=== PATIENT | male | born 1990 | race Caucasian/White ===

== ENCOUNTER 2017-04-16 10:11 | Emergency (ER) | payer MEDICAID ==
[~2017-04-16] VITALS: Ht 165.1 cm; Wt 100.3 kg
[2017-04-16 10:13] VITALS: Ht 165.1 cm; Wt 100.3 kg
[2017-04-16] MEDS ORDERED: ONDANSETRON (ODT) 4 MG TAB ODT STA (11:30)
[2017-04-16] MEDS ORDERED: HYDROCODONE/APAP (5/325) TAB PO ONE (11:30)
--- NOTE | 2017-04-16 12:11 | RADRPT ---
PROCEDURE: XR Lumbar Spine. CLINICAL INDICATION: Low back pain. TECHNIQUE: Three views of the lumbar spine are available for review COMPARISON: None available FINDINGS: There is maintenance of normal lumbar lordosis. Alignment is intact. No acute fracture or disloca tion is seen. The vertebral body heights and disc spaces are preserved. IMPRESSION: 1. No acute fracture or dislocation. RPTAT: [facility] .George Mishra MD, Date Time Electronically viewed and signed by .George Mishra MD, on 04/16/2017 12:10 .N/
[2017-04-16] MEDS ORDERED: NAPR-260 PO (12:24)
[2017-04-16] MEDS ORDERED: CYCL-319 PO (12:24)
[2017-04-16] MEDS ORDERED: HYDR-906 PO (12:24)
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
[2017-04-16 12:45] VITALS: BP 124/62; PULSE 59; RESP 16; TEMP 97.9
== END 2017-04-16 12:46 | disposition home or self-care (01) ==
LOC: FTE 10:11
DX: M54.5 Low back pain (principal); Z87.891 Personal history of nicotine dependence
CPT/HCPCS: 72100; Z7502; Z7610